=== PATIENT | male | born 1990 | race Asian ===

== ENCOUNTER 2019-03-08 22:57 | Emergency (ER) | payer SELFPAY ==
[~2019-03-08] VITALS: Ht 165.1 cm; Wt 74.5 kg
[~2019-03-08 22:57] MED LIST: HYDR-3240 PO
[2019-03-08 22:59] VITALS: BP 129/73
[2019-03-08] MEDS ORDERED: IBUPROFEN 600 MG TABLET ONE (23:22)
[2019-03-08] MEDS ORDERED: HYDROcodone/APAP 5/325 TABLET ONE (23:23)
[2019-03-08] MEDS ORDERED: HYDROcodone/APAP 5/325 TABLET PO ONE (23:30)
[2019-03-08] MEDS ORDERED: IBUPROFEN 600 MG TABLET PO ONE (23:30)
[2019-03-08 23:49] LABS: RAPID INFLUENZA A Negative (Negative); RAPID INFLUENZA B POSITIVE (Negative)
== END 2019-03-09 00:20 | disposition home or self-care (01) ==
LOC: ED 03-09 00:10
DX: J10.1 Influenza due to other identified influenza virus with other respiratory manifestations (principal); F17.200 Nicotine dependence, unspecified, uncomplicated
CPT/HCPCS: 71046; 87081; 87400; 87880; 99284